=== PATIENT | male | born 1980 | race Caucasian/White ===

== ENCOUNTER 2018-04-03 14:35 | Inpatient (IN) | payer MEDICARE, MEDICAID ==
[~2018-04-03] VITALS: Ht 167.6 cm; Wt 124.0 kg
[2018-04-03] MEDS ORDERED: LORazepam 2 MG TABLET PO PRN (15:30)
[2018-04-03] MEDS ORDERED: HALOPERIDOL 5 MG TABLET PO PRN (15:30)
[2018-04-03] MEDS ORDERED: ZOLPIDEM TARTRATE 10 MG TABLET PO PRN (15:30)
[2018-04-03 16:44] VITALS: BP 143/80
[2018-04-03 18:14] LABS: BASOPHILS % (AUTO) 0.6 % (0.0-2.0); EOSINOPHILS % (AUTO) 1.5 % (1.0-6.0); HEMATOCRIT 42.3 % (41-53); HEMOGLOBIN 14.7 g/dL (13.5-17.5); LYMPHOCYTES # (AUTO) 2.1 K/uL (1.0-4.8); LYMPHOCYTES % (AUTO) 27.6 % (22.0-44.0); MEAN CORPUSCULAR HEMOGLOBIN 30.2 pg (26.0-34.0); MEAN CORPUSCULAR HGB CONC 34.8 G/dL (31.0-37.0); MEAN CORPUSCULAR VOLUME 87 fL (80-100); MONOCYTES # (AUTO) 0.5 K/uL (0.1-1.0); MONOCYTES % (AUTO) 6.9 % (2.0-9.0); NEUTROPHILS # (AUTO) 4.8 K/uL (1.8-7.7); NEUTROPHILS % (AUTO) 63.4 % (40.0-70.0); PLATELET COUNT (AUTO) 210 K/uL (150-450); RED BLOOD CELL COUNT(AUTO) 4.89 MIL/uL (4.50-5.90); RED CELL DISTRIBUTION WIDTH 13.2 % (11.5-14.5)
[2018-04-03 18:28] LABS: ALANINE AMINOTRANSFERASE 56 U/L (12-78); ALBUMIN 3.6 g/dL (3.4-5.0); ALKALINE PHOSPHATASE 102 U/L (46-116); ANION GAP 5 mmol/L (8-16); ASPARTATE AMINOTRANSFERASE 20 U/L (15-37); BILIRUBIN,TOTAL 0.3 mg/dL (0.1-1.0); CALCIUM, TOTAL 8.7 mg/dL (8.8-10.5); CARBON DIOXIDE 30 mmol/L (22-29); CHLORIDE 107 mmol/L (98-107); CREATININE 0.59 mg/dL (0.60-1.30); GLOMERULAR FILTR. RATE CALC > 60 mL/min (>60); GLUCOSE,RANDOM 103 mg/dL (70-110); POTASSIUM 4.3 mmol/L (3.5-5.1); SODIUM SERUM 142 mmol/L (136-145); TOTAL PROTEIN, SERUM 7.7 g/dL (6.4-8.2); UREA NITROGEN, BLOOD 15 mg/dL (7-18)
[2018-04-03 19:53] LABS: AMPHET/METH SCREEN,URINE NEGATIVE (NEGATIVE); BARBITURATE SCREEN, URINE NEGATIVE (NEGATIVE); BENZODIAZEPINES SCREEN,URINE NEGATIVE (NEGATIVE); CANNABINOID SCREEN,URINE NEGATIVE (NEGATIVE); COCAINE SCREEN,URINE NEGATIVE (NEGATIVE); METHADONE SCREEN, URINE NEGATIVE (NEGATIVE); OPIATE SCREEN,URINE NEGATIVE (NEGATIVE); PHENCYCLIDINE SCREEN,URINE NEGATIVE (NEGATIVE)
[2018-04-03 20:01] LABS: APPEARANCE,URINE CLEAR (CLEAR); BILIRUBIN,URINE NEGATIVE (NEGATIVE); GLUCOSE, URINE (UA) NEGATIVE (NEGATIVE); KETONES,URINE NEGATIVE (NEGATIVE); LEUKOCYTE ESTERASE ,URINE NEGATIVE (NEGATIVE); NITRATE,URINE NEGATIVE (NEGATIVE); OCCULT BLOOD,URINE NEGATIVE (NEGATIVE); PH,URINE 5.5 (5.0-8.0); PROTEIN,URINE POS 1+ (NEGATIVE)
[2018-04-03] MEDS ORDERED: CloNIDine HCL 0.1 MG TABLET PO PRN (20:15)
[2018-04-03] MEDS ORDERED: PETROLATUM,WHITE 71 GM JELLY TP PRN (20:15)
[2018-04-03] MEDS ORDERED: ALBUTEROL SULFATE HFA 90 MCG/PUFF 8 GM INHALER IH PRN (20:15)
[2018-04-03] MEDS ORDERED: IBUPROFEN 600 MG TABLET PO PRN (20:15)
[2018-04-03] MEDS ORDERED: MAGNESIUM HYDROXIDE SUSPENSION 30 ML UDCUP PO PRN (20:15)
[2018-04-03] MEDS ORDERED: MAG HYDROX/AL HYDROX/SIMETH ES 30 ML SUSPENSION UDCUP PO PRN (20:15)
[2018-04-03] MEDS ORDERED: LOPERAMIDE HCL 2 MG CAPSULE PO PRN (20:15)
[2018-04-03] MEDS ORDERED: BACITRACIN 28.4 GM OINTMENT TP PRN (20:15)
[2018-04-03] MEDS ORDERED: BENZOCAINE/MENTHOL LOZENGE MM PRN (20:15)
[2018-04-03] MEDS ORDERED: ACETAMINOPHEN 325 MG TABLET PO PRN (20:15)
[2018-04-03] MEDS ORDERED: ONDANSETRON HCL 4 MG TABLET PO PRN (20:15)
[2018-04-03] MEDS: PALIPERIDONE 3 MG ER TABLET PO SCH (21:11)
[2018-04-04 06:16] VITALS: BP 114/91
[2018-04-04] MEDS: DOCUSATE SODIUM 100 MG CAPSULE PO SCH (08:28)
[2018-04-04] MEDS: OMEPRAZOLE 20 MG CAPSULE PO SCH (08:28)
[2018-04-04 08:43] LABS: FREE T4 (FREE THYROXINE) 0.99 ng/dL (0.76-1.46)
[2018-04-04 08:58] VITALS: BP 145/100
[2018-04-04 18:37] VITALS: BP 121/85
[2018-04-04] MEDS: PALIPERIDONE 3 MG ER TABLET PO SCH (20:05)
[2018-04-05] MEDS: OMEGA-3/DHA/EPA/FISH OIL 1,000 MG CAPSULE PO SCH (08:09)
[2018-04-05] MEDS: DOCUSATE SODIUM 100 MG CAPSULE PO SCH (08:09)
[2018-04-05] MEDS: OMEPRAZOLE 20 MG CAPSULE PO SCH (08:09)
[2018-04-05] MEDS: CHOLECALCIFEROL (VIT D3) 1,000 UNITS TABLET PO SCH (08:09)
[2018-04-05 08:58] VITALS: BP 153/83
[2018-04-05 16:58] VITALS: BP 142/77
[2018-04-05] MEDS: PALIPERIDONE 3 MG ER TABLET PO SCH (21:15)
[2018-04-06] MEDS: CHOLECALCIFEROL (VIT D3) 1,000 UNITS TABLET PO SCH (08:18)
[2018-04-06] MEDS: OMEGA-3/DHA/EPA/FISH OIL 1,000 MG CAPSULE PO SCH (08:18)
[2018-04-06] MEDS: DOCUSATE SODIUM 100 MG CAPSULE PO SCH (08:18)
[2018-04-06] MEDS: OMEPRAZOLE 20 MG CAPSULE PO SCH (08:18)
[2018-04-06 09:29] VITALS: BP 147/84
[2018-04-06 17:00] VITALS: BP 140/78
[2018-04-06] MEDS: PALIPERIDONE 3 MG ER TABLET PO SCH (20:30)
[2018-04-07] MEDS: OMEGA-3/DHA/EPA/FISH OIL 1,000 MG CAPSULE PO SCH (07:53)
[2018-04-07] MEDS: DOCUSATE SODIUM 100 MG CAPSULE PO SCH (07:53)
[2018-04-07] MEDS: OMEPRAZOLE 20 MG CAPSULE PO SCH (07:53)
[2018-04-07] MEDS: CHOLECALCIFEROL (VIT D3) 1,000 UNITS TABLET PO SCH (07:53)
[2018-04-07 17:28] VITALS: BP 143/91
[2018-04-07] MEDS: PALIPERIDONE 3 MG ER TABLET PO SCH (20:18)
[2018-04-08] MEDS: CHOLECALCIFEROL (VIT D3) 1,000 UNITS TABLET PO SCH (08:09)
[2018-04-08] MEDS: OMEPRAZOLE 20 MG CAPSULE PO SCH (08:09)
[2018-04-08] MEDS: OMEGA-3/DHA/EPA/FISH OIL 1,000 MG CAPSULE PO SCH (08:10)
[2018-04-08] MEDS: DOCUSATE SODIUM 100 MG CAPSULE PO SCH (08:10)
[2018-04-08 08:51] VITALS: BP 137/91
[2018-04-08] MEDS: PALIPERIDONE 3 MG ER TABLET PO SCH (21:25)
[2018-04-08 21:47] VITALS: BP 137/93
[2018-04-09] MEDS: OMEPRAZOLE 20 MG CAPSULE PO SCH (07:51)
[2018-04-09] MEDS: CHOLECALCIFEROL (VIT D3) 1,000 UNITS TABLET PO SCH (07:51)
[2018-04-09] MEDS: DOCUSATE SODIUM 100 MG CAPSULE PO SCH (07:52)
[2018-04-09] MEDS: OMEGA-3/DHA/EPA/FISH OIL 1,000 MG CAPSULE PO SCH (07:52)
[2018-04-09 08:02] VITALS: BP 143/81
[2018-04-09 19:13] VITALS: BP 136/77
[2018-04-09] MEDS: PALIPERIDONE 3 MG ER TABLET PO SCH (21:07)
[2018-04-10 08:30] VITALS: BP 122/78
[2018-04-10] MEDS: DOCUSATE SODIUM 100 MG CAPSULE PO SCH (09:26)
[2018-04-10] MEDS: OMEPRAZOLE 20 MG CAPSULE PO SCH (09:26)
[2018-04-10] MEDS: CHOLECALCIFEROL (VIT D3) 1,000 UNITS TABLET PO SCH (09:26)
[2018-04-10] MEDS: OMEGA-3/DHA/EPA/FISH OIL 1,000 MG CAPSULE PO SCH (09:26)
[2018-04-10 20:25] VITALS: BP 152/65
[2018-04-10] MEDS: PALIPERIDONE 3 MG ER TABLET PO SCH (21:30)
[2018-04-11] MEDS ORDERED: PALI3 PO (06:53)
[2018-04-11] MEDS: CHOLECALCIFEROL (VIT D3) 1,000 UNITS TABLET PO SCH (08:12)
[2018-04-11] MEDS: OMEPRAZOLE 20 MG CAPSULE PO SCH (08:12)
[2018-04-11] MEDS: DOCUSATE SODIUM 100 MG CAPSULE PO SCH (08:12)
[2018-04-11 08:40] VITALS: BP 145/63
[2018-04-11] MEDS: OMEGA-3/DHA/EPA/FISH OIL 1,000 MG CAPSULE PO SCH (09:46)
[2018-04-11] MEDS ORDERED: DSS100 PO (11:08)
[2018-04-11] MEDS ORDERED: VITAD1000 PO (11:08)
[2018-04-11] MEDS ORDERED: OMEG-135 PO (11:08)
[2018-04-11] MEDS ORDERED: OMEP20 PO (11:09)
== END 2018-04-11 14:17 | disposition home or self-care (01) | DRG 885 ==
LOC: 3EX 15:27
PROVIDERS: ADMIT Psychiatry & Neurology Psychiatry; ATTEND Psychiatry & Neurology Psychiatry
DX: F20.0 Paranoid schizophrenia (principal); Z68.41 Body mass index [BMI] 40.0-44.9, adult; E55.9 Vitamin D deficiency, unspecified; E66.9 Obesity, unspecified; K59.00 Constipation, unspecified; G47.00 Insomnia, unspecified; F41.9 Anxiety disorder, unspecified; E78.1 Pure hyperglyceridemia; Z56.0 Unemployment, unspecified; Z79.899 Other long term (current) drug therapy
CPT/HCPCS: 80307; 82306; 84436; 84439; 84443

== ENCOUNTER 2020-05-03 19:58 | Inpatient (IN) | payer MEDICARE, MEDICAID ==
[~2020-05-03] VITALS: Ht 167.6 cm; Wt 116.6 kg
[~2020-05-03 19:58] MED LIST: CHOL100018 PO; DSS100 PO; OMEG-135 PO; OMEP20 PO; PALI3TAB14 PO
[2020-05-03 21:59] LABS: AMPHET/METH SCREEN,URINE NEGATIVE (NEGATIVE); BARBITURATE SCREEN, URINE NEGATIVE (NEGATIVE); BENZODIAZEPINES SCREEN,URINE NEGATIVE (NEGATIVE); CANNABINOID SCREEN,URINE NEGATIVE (NEGATIVE); COCAINE SCREEN,URINE NEGATIVE (NEGATIVE); METHADONE SCREEN, URINE NEGATIVE (NEGATIVE); OPIATE SCREEN,URINE NEGATIVE (NEGATIVE)
[2020-05-03 22:05] LABS: BASOPHILS % (AUTO) 0.4 % (0.0-2.0); EOSINOPHILS % (AUTO) 2.7 % (1.0-6.0); HEMATOCRIT 47.8 % (41-53); HEMOGLOBIN 16.3 g/dL (13.5-17.5); LYMPHOCYTES # (AUTO) 2.7 K/uL (1.0-4.8); LYMPHOCYTES % (AUTO) 35.2 % (22.0-44.0); MEAN CORPUSCULAR HEMOGLOBIN 32.8 pg (26.0-34.0); MEAN CORPUSCULAR HGB CONC 34.2 G/dL (31.0-37.0); MEAN CORPUSCULAR VOLUME 96 fL (80-100); MONOCYTES # (AUTO) 0.5 K/uL (0.1-1.0); MONOCYTES % (AUTO) 6.4 % (2.0-9.0); NEUTROPHILS # (AUTO) 4.2 K/uL (1.8-7.7); NEUTROPHILS % (AUTO) 55.3 % (40.0-70.0); PLATELET COUNT (AUTO) 192 K/uL (150-450); RED BLOOD CELL COUNT(AUTO) 4.99 MIL/uL (4.50-5.90); RED CELL DISTRIBUTION WIDTH 13.5 % (11.5-14.5)
[2020-05-03 22:07] LABS: PHENCYCLIDINE SCREEN,URINE NEGATIVE (NEGATIVE)
[2020-05-03 22:14] LABS: ANION GAP 13 mmol/L (8-16); CALCIUM, TOTAL 8.5 mg/dL (8.8-10.5); CARBON DIOXIDE 26 mmol/L (22-29); CHLORIDE 102 mmol/L (98-107); GLOMERULAR FILTR. RATE CALC > 60 mL/min (>60); GLUCOSE,RANDOM 153 mg/dL (70-110); POTASSIUM 3.8 mmol/L (3.5-5.1); SODIUM SERUM 141 mmol/L (136-145); UREA NITROGEN, BLOOD 13 mg/dL (7-18)
[2020-05-03 22:16] LABS: ALANINE AMINOTRANSFERASE 137 U/L (12-78); ALBUMIN 3.7 g/dL (3.4-5.0); ALKALINE PHOSPHATASE 120 U/L (46-116); ASPARTATE AMINOTRANSFERASE 82 U/L (15-37); BILIRUBIN,TOTAL 0.3 mg/dL (0.1-1.0); TOTAL PROTEIN, SERUM 8.2 g/dL (6.4-8.2)
[2020-05-03] MEDS ORDERED: HALOPERIDOL 5 MG TABLET PO ONE (22:30)
[2020-05-03] MEDS ORDERED: LORazepam 2 MG TABLET PO ONE (22:30)
[2020-05-03] MEDS ORDERED: HALOPERIDOL 5 MG TABLET PO PRN (22:45)
[2020-05-03] MEDS ORDERED: LORazepam 2 MG TABLET PO PRN (22:45)
[2020-05-04] VITALS (10 sets, daily range): BP systolic 130–149; BP diastolic 58–110
[2020-05-04] MEDS: ZOLPIDEM TARTRATE 10 MG TABLET PO PRN (02:02)
[2020-05-04 06:36] LABS: CHOL/HDL RATIO 3.2 (4.2-7.3)
[2020-05-04] MEDS ORDERED: ONDANSETRON HCL 4 MG TABLET PO PRN (08:15)
[2020-05-04] MEDS ORDERED: BENZOCAINE/MENTHOL LOZENGE MM PRN (08:15)
[2020-05-04] MEDS ORDERED: ACETAMINOPHEN 325 MG TABLET PO PRN (08:15)
[2020-05-04] MEDS ORDERED: OMEPRAZOLE 20 MG CAPSULE PO PRN (08:15)
[2020-05-04] MEDS ORDERED: PETROLATUM,WHITE 28 GM JELLY TP PRN (08:15)
[2020-05-04] MEDS ORDERED: MAG HYDROX/AL HYDROX/SIMETH ES 30 ML SUSPENSION UDCUP PO PRN (08:15)
[2020-05-04] MEDS ORDERED: DOCUSATE SODIUM 100 MG CAPSULE PO PRN (08:15)
[2020-05-04] MEDS ORDERED: IBUPROFEN 600 MG TABLET PO PRN (08:15)
[2020-05-04] MEDS ORDERED: LOPERAMIDE HCL 2 MG CAPSULE PO PRN (08:15)
[2020-05-04] MEDS ORDERED: CloNIDine HCL 0.1 MG TABLET PO PRN (08:15)
[2020-05-04] MEDS ORDERED: BACITRACIN 28.4 GM OINTMENT TP PRN (08:15)
[2020-05-04] MEDS ORDERED: ALBUTEROL SULFATE HFA 90 MCG/PUFF 8 GM INHALER IH PRN (08:15)
[2020-05-04] MEDS ORDERED: MAGNESIUM HYDROXIDE SUSPENSION 30 ML UDCUP PO PRN (08:15)
[2020-05-04] MEDS: METOPROLOL TARTRATE 25 MG TABLET PO SCH ×2 (09:55→16:18)
[2020-05-04] MEDS ORDERED: LORazepam 2 MG TABLET PO PRN (10:45)
[2020-05-04] MEDS: OLANZapine 5 MG TABLET PO SCH ×2 (10:50→16:18)
[2020-05-05] VITALS (7 sets, daily range): BP systolic 117–161; BP diastolic 69–91
[2020-05-05] MEDS ORDERED: LORazepam 2 MG TABLET PO PRN (07:00)
[2020-05-05] MEDS: LORazepam 2 MG TABLET PO SCH ×4 (08:33→21:40)
[2020-05-05] MEDS: METOPROLOL TARTRATE 25 MG TABLET PO SCH ×2 (08:33→17:02)
[2020-05-05] MEDS: OLANZapine 5 MG TABLET PO SCH ×2 (08:33→17:02)
[2020-05-06 05:58] VITALS: BP_SYST 129; BP_SYST 141; BP_DIAS 73; BP_DIAS 83
[2020-05-06 08:00] VITALS: BP 152/91
[2020-05-06] MEDS: LORazepam 2 MG TABLET PO SCH ×4 (08:26→20:26)
[2020-05-06] MEDS: METOPROLOL TARTRATE 25 MG TABLET PO SCH ×2 (08:26→16:26)
[2020-05-06] MEDS: OLANZapine 5 MG TABLET PO SCH ×2 (08:26→16:26)
[2020-05-06 13:05] VITALS: BP 137/79
[2020-05-06 16:18] VITALS: BP 143/98
[2020-05-06 17:21] VITALS: BP 147/98
[2020-05-06] MEDS: ZOLPIDEM TARTRATE 10 MG TABLET PO PRN (22:21)
[2020-05-07 03:16] VITALS: BP 143/86
[2020-05-07] MEDS ORDERED: LORazepam 1 MG TABLET PO PRN (07:00)
[2020-05-07 08:00] VITALS: BP 137/95
[2020-05-07] MEDS: LORazepam 1 MG TABLET PO SCH ×4 (08:52→20:19)
[2020-05-07] MEDS: METOPROLOL TARTRATE 25 MG TABLET PO SCH ×2 (08:52→16:24)
[2020-05-07] MEDS: OLANZapine 5 MG TABLET PO SCH ×2 (08:53→16:25)
[2020-05-07 12:59] VITALS: BP 156/94
[2020-05-07 16:40] VITALS: BP 147/94
[2020-05-07 16:44] VITALS: BP 147/94
[2020-05-08 06:27] VITALS: BP 137/86
[2020-05-08] MEDS ORDERED: LORazepam 1 MG TABLET PO PRN (07:00)
[2020-05-08 08:00] VITALS: BP 120/83
[2020-05-08] MEDS: METOPROLOL TARTRATE 25 MG TABLET PO SCH (08:45)
[2020-05-08] MEDS: OLANZapine 5 MG TABLET PO SCH (08:45)
[2020-05-08] MEDS ORDERED: OLAN5TAB2 PO (13:13)
[2020-05-08] MEDS ORDERED: METO25 PO (13:14)
[2020-05-08 18:35] VITALS: BP 142/84
== END 2020-05-08 17:30 | disposition home or self-care (01) | DRG 885 ==
LOC: EMS 19:58 → 3EX 22:35
PROVIDERS: ADMIT Psychiatry & Neurology Psychiatry; ATTEND Psychiatry & Neurology Psychiatry
DX: F20.9 Schizophrenia, unspecified (principal); R45.851 Suicidal ideations; Z68.41 Body mass index [BMI] 40.0-44.9, adult; I10 Essential (primary) hypertension; E66.01 Morbid (severe) obesity due to excess calories; E78.00 Pure hypercholesterolemia, unspecified; F41.9 Anxiety disorder, unspecified; Z81.8 Family history of other mental and behavioral disorders; K21.9 Gastro-esophageal reflux disease without esophagitis; F10.10 Alcohol abuse, uncomplicated; Y90.9 Presence of alcohol in blood, level not specified; K59.00 Constipation, unspecified; G47.00 Insomnia, unspecified; F17.210 Nicotine dependence, cigarettes, uncomplicated; J44.9 Chronic obstructive pulmonary disease, unspecified
CPT/HCPCS: 80074; 83036; 87081; G0378; G0480

== ENCOUNTER 2020-10-28 18:54 | Emergency (ER) | payer MEDICARE, OTHER ==
[~2020-10-28 18:54] MED LIST changes: -CHOL100018 PO; -DSS100 PO; +METO25 PO; -OMEG-135 PO; -OMEP20 PO; -PALI3TAB14 PO; +RISP3TAB35 PO; +RISPC50 IM
[2020-10-29 01:52] LABS: AMPHET/METH SCREEN,URINE NEGATIVE (NEGATIVE); BARBITURATE SCREEN, URINE NEGATIVE (NEGATIVE); BENZODIAZEPINES SCREEN,URINE NEGATIVE (NEGATIVE); CANNABINOID SCREEN,URINE NEGATIVE (NEGATIVE); COCAINE SCREEN,URINE NEGATIVE (NEGATIVE); METHADONE SCREEN, URINE NEGATIVE (NEGATIVE); OPIATE SCREEN,URINE NEGATIVE (NEGATIVE)
[2020-10-29 01:56] LABS: PHENCYCLIDINE SCREEN,URINE NEGATIVE (NEGATIVE)
== END 2020-10-29 01:53 | disposition left against medical advice (07) ==
LOC: EMS 18:54
DX: Z04.1 Encounter for examination and observation following transport accident (principal); Z53.21 Procedure and treatment not carried out due to patient leaving prior to being seen by health care provider

== ENCOUNTER 2022-09-15 18:17 | Inpatient (IN) | payer MEDICARE, MEDICAID ==
[~2022-09-15] VITALS: Ht 162.6 cm; Wt 119.3 kg
[~2022-09-15 18:17] MED LIST changes: +FLUP5TAB31 PO; +FOLI-130 PO; +OMEG-135 PO; -RISP3TAB35 PO; +THIA100T80 PO
[2022-09-15 19:53] LABS: BASOPHILS % (AUTO) 0.6 % (0.0-2.0); EOSINOPHILS % (AUTO) 3.6 % (1.0-6.0); HEMOGLOBIN 16.6 g/dL (13.5-17.5); LYMPHOCYTES # (AUTO) 1.9 K/uL (1.0-4.8); LYMPHOCYTES % (AUTO) 19.7 % (22.0-44.0); MEAN CORPUSCULAR HEMOGLOBIN 31.4 pg (26.0-34.0); MEAN CORPUSCULAR HGB CONC 33.8 G/dL (31.0-37.0); MEAN CORPUSCULAR VOLUME 93 fL (80-100); MONOCYTES # (AUTO) 0.8 K/uL (0.1-1.0); MONOCYTES % (AUTO) 8.6 % (2.0-9.0); NEUTROPHILS # (AUTO) 6.5 K/uL (1.8-7.7); NEUTROPHILS % (AUTO) 67.5 % (40.0-70.0); PLATELET COUNT (AUTO) 234 K/uL (150-450); RED BLOOD CELL COUNT(AUTO) 5.28 MIL/uL (4.50-5.90)
[2022-09-15 20:07] LABS: ANION GAP 5 mmol/L (8-16); CARBON DIOXIDE 30 mmol/L (22-29); CHLORIDE 101 mmol/L (98-107); CREATININE 1.05 mg/dL (0.60-1.30); GLOMERULAR FILTR. RATE CALC > 60 mL/min (>60); GLUCOSE,RANDOM 152 mg/dL (70-110); POTASSIUM 3.9 mmol/L (3.5-5.1); SODIUM SERUM 136 mmol/L (136-145); UREA NITROGEN, BLOOD 13 mg/dL (7-18)
[2022-09-15 20:11] LABS: ALANINE AMINOTRANSFERASE 50 U/L (12-78); ALBUMIN 3.8 g/dL (3.4-5.0); ALKALINE PHOSPHATASE 112 U/L (46-116); ASPARTATE AMINOTRANSFERASE 22 U/L (15-37); BILIRUBIN,TOTAL 0.5 mg/dL (0.1-1.0); TOTAL PROTEIN, SERUM 8.3 g/dL (6.4-8.2)
[2022-09-15 21:14] LABS: COVID AG,FIA SOURCE NASOPHARYNGEAL
[2022-09-16] MEDS ORDERED: LORazepam 2 MG TABLET PO PRN
[2022-09-16] MEDS ORDERED: HALOPERIDOL 5 MG TABLET PO PRN
[2022-09-16] MEDS ORDERED: ZOLPIDEM TARTRATE 10 MG TABLET PO PRN
[2022-09-16 02:36] VITALS: BP 121/56
[2022-09-16] MEDS ORDERED: INFLUENZA VIRUS VACCINE QVS 2022-23 (6MO+)/PF 60 MCG/0.5 ML SYRINGE IM. ONE (03:45)
[2022-09-16 08:06] VITALS: BP 149/88
[2022-09-16] MEDS ORDERED: ALBUTEROL SULFATE HFA 90 MCG/PUFF 8 GM INHALER IH PRN (19:45)
[2022-09-16] MEDS ORDERED: MAGNESIUM HYDROXIDE SUSPENSION 30 ML UDCUP PO PRN (19:45)
[2022-09-16] MEDS ORDERED: ONDANSETRON HCL 4 MG TABLET PO PRN (19:45)
[2022-09-16] MEDS ORDERED: DOCUSATE SODIUM 100 MG CAPSULE PO PRN (19:45)
[2022-09-16] MEDS ORDERED: GuaiFENesin/D-METHORPHAN [SUGAR-FREE] 200-20MG/10 ML SYRUP UDCUP PO PRN (19:45)
[2022-09-16] MEDS ORDERED: NICOTINE 14 MG/24 HOUR PATCH TD PRN (19:45)
[2022-09-16] MEDS ORDERED: ACETAMINOPHEN 325 MG TABLET PO PRN (19:45)
[2022-09-16] MEDS ORDERED: CloNIDine HCL 0.1 MG TABLET PO PRN (19:45)
[2022-09-16] MEDS ORDERED: LOPERAMIDE HCL 2 MG CAPSULE PO PRN (19:45)
[2022-09-16] MEDS ORDERED: IBUPROFEN 400 MG TABLET PO PRN (19:45)
[2022-09-16] MEDS ORDERED: PETROLATUM,WHITE 28 GM JELLY TP PRN (19:45)
[2022-09-16] MEDS ORDERED: MAG HYDROX/AL HYDROX/SIMETH ES 30 ML SUSPENSION UDCUP PO PRN (19:45)
[2022-09-16 20:30] VITALS: BP 140/84
[2022-09-17] MEDS: METOPROLOL TARTRATE 25 MG TABLET PO SCH (08:10)
[2022-09-17] MEDS: THIAMINE 100 MG TABLET PO SCH (08:10)
[2022-09-17] MEDS: FOLIC ACID 1 MG TABLET PO SCH (08:10)
[2022-09-17 08:11] VITALS: BP 144/92
[2022-09-17] MEDS: OMEGA-3/DHA/EPA/FISH OIL 1,000 MG CAPSULE PO SCH (08:11)
[2022-09-17 22:06] VITALS: BP 146/88
[2022-09-18 07:03] LABS: APPEARANCE,URINE CLEAR (CLEAR); BILIRUBIN,URINE NEGATIVE (NEGATIVE); GLUCOSE, URINE (UA) NEGATIVE (NEGATIVE); KETONES,URINE NEGATIVE (NEGATIVE); LEUKOCYTE ESTERASE ,URINE NEGATIVE (NEGATIVE); NITRATE,URINE NEGATIVE (NEGATIVE); OCCULT BLOOD,URINE NEGATIVE (NEGATIVE); PROTEIN,URINE NEGATIVE (NEGATIVE); SPECIFIC GRAVITIY, URINE 1.019 (1.003-1.030); UROBILINOGEN,URINE <=1.0 mg/dL (<=1.0)
[2022-09-18 07:09] LABS: AMPHET/METH SCREEN,URINE POSITIVE (NEGATIVE); BARBITURATE SCREEN, URINE NEGATIVE (NEGATIVE); BENZODIAZEPINES SCREEN,URINE NEGATIVE (NEGATIVE); CANNABINOID SCREEN,URINE NEGATIVE (NEGATIVE); COCAINE SCREEN,URINE NEGATIVE (NEGATIVE); METHADONE SCREEN, URINE NEGATIVE (NEGATIVE); OPIATE SCREEN,URINE NEGATIVE (NEGATIVE)
[2022-09-18 07:12] LABS: PHENCYCLIDINE SCREEN,URINE NEGATIVE (NEGATIVE)
[2022-09-18] MEDS: METOPROLOL TARTRATE 25 MG TABLET PO SCH (08:11)
[2022-09-18] MEDS: THIAMINE 100 MG TABLET PO SCH (08:11)
[2022-09-18] MEDS: OMEGA-3/DHA/EPA/FISH OIL 1,000 MG CAPSULE PO SCH (08:11)
[2022-09-18] MEDS: FOLIC ACID 1 MG TABLET PO SCH (08:11)
[2022-09-18 09:26] VITALS: BP 151/91
[2022-09-18 22:14] VITALS: BP 138/67
[2022-09-19] MEDS: THIAMINE 100 MG TABLET PO SCH (08:08)
[2022-09-19] MEDS: FOLIC ACID 1 MG TABLET PO SCH (08:08)
[2022-09-19] MEDS: METOPROLOL TARTRATE 25 MG TABLET PO SCH (08:08)
[2022-09-19] MEDS: OMEGA-3/DHA/EPA/FISH OIL 1,000 MG CAPSULE PO SCH (08:09)
[2022-09-19 08:35] VITALS: BP 142/89
[2022-09-19] MEDS ORDERED: RisperiDONE MICROSPHERES 50 MG/2 ML SYRINGE IM ONE (16:00)
[2022-09-19 20:47] VITALS: BP 159/72
[2022-09-20 08:00] VITALS: BP 135/95
[2022-09-20] MEDS: OMEGA-3/DHA/EPA/FISH OIL 1,000 MG CAPSULE PO SCH (08:52)
[2022-09-20] MEDS: METOPROLOL TARTRATE 25 MG TABLET PO SCH (08:52)
[2022-09-20] MEDS: FOLIC ACID 1 MG TABLET PO SCH (08:52)
[2022-09-20] MEDS: THIAMINE 100 MG TABLET PO SCH (08:52)
[2022-09-20 20:00] VITALS: BP 146/88
[2022-09-21 08:24] VITALS: BP 135/90
[2022-09-21] MEDS: OMEGA-3/DHA/EPA/FISH OIL 1,000 MG CAPSULE PO SCH (09:58)
[2022-09-21] MEDS: FOLIC ACID 1 MG TABLET PO SCH (09:58)
[2022-09-21] MEDS: THIAMINE 100 MG TABLET PO SCH (09:58)
[2022-09-21] MEDS: METOPROLOL TARTRATE 25 MG TABLET PO SCH (09:59)
[2022-09-21 13:57] LABS: GLUCOMETER DEV NAME(LOC) POC.BV
[2022-09-21 20:35] VITALS: BP 135/90
[2022-09-22] MEDS: METOPROLOL TARTRATE 25 MG TABLET PO SCH (09:10)
[2022-09-22] MEDS: THIAMINE 100 MG TABLET PO SCH (09:11)
[2022-09-22] MEDS: OMEGA-3/DHA/EPA/FISH OIL 1,000 MG CAPSULE PO SCH (09:11)
[2022-09-22] MEDS: FOLIC ACID 1 MG TABLET PO SCH (09:11)
[2022-09-22 09:43] VITALS: BP 162/71
[2022-09-22 19:36] LABS: GLUCOMETER DEV NAME(LOC) POC.BV
[2022-09-22 20:52] VITALS: BP 152/93
[2022-09-23 08:37] VITALS: BP 155/93
[2022-09-23] MEDS: OMEGA-3/DHA/EPA/FISH OIL 1,000 MG CAPSULE PO SCH (08:50)
[2022-09-23] MEDS: FOLIC ACID 1 MG TABLET PO SCH (08:50)
[2022-09-23] MEDS: THIAMINE 100 MG TABLET PO SCH (08:50)
[2022-09-23] MEDS: METOPROLOL TARTRATE 25 MG TABLET PO SCH (08:50)
[2022-10-07] MEDS ORDERED: RisperiDONE MICROSPHERES 50 MG/2 ML SYRINGE IM SCH (09:00)
== END 2022-09-23 16:04 | disposition home or self-care (01) | DRG 885 ==
LOC: EMS 18:28 → B2X 09-16 00:21 → B2S 09-22 21:36
PROVIDERS: ADMIT Psychiatry & Neurology Psychiatry; ATTEND Psychiatry & Neurology Psychiatry
DX: F25.9 Schizoaffective disorder, unspecified (principal); E78.5 Hyperlipidemia, unspecified; Z20.822 Contact with and (suspected) exposure to COVID-19; I10 Essential (primary) hypertension; R73.9 Hyperglycemia, unspecified; F17.210 Nicotine dependence, cigarettes, uncomplicated; Z86.73 Personal history of transient ischemic attack (TIA), and cerebral infarction without residual deficits; Z28.21 Immunization not carried out because of patient refusal; Z79.899 Other long term (current) drug therapy
CPT/HCPCS: 80053; 80307; 81003; 85025; 99285; G0480; J2794

== ENCOUNTER 2024-02-08 16:15 | Emergency (ER) | payer MEDICARE, OTHER ==
[~2024-02-08] VITALS: Ht 167.6 cm; Wt 120.0 kg
[~2024-02-08 16:15] MED LIST changes: -FLUP5TAB31 PO; -FOLI-130 PO; -METO25 PO; -OMEG-135 PO; -THIA100T80 PO
[2024-02-08] MEDS ORDERED: QUET200T30 PO (16:24)
[2024-02-08] MEDS ORDERED: RISP125S SQ (16:24)
[2024-02-08] MEDS ORDERED: TRAZ-257 PO (16:24)
[2024-02-08] MEDS ORDERED: FLUP10TA8 PO (16:24)
[2024-02-08] MEDS ORDERED: RISP3TAB35 PO (16:24)
[2024-02-08] MEDS ORDERED: BENZ2TAB71 PO (16:24)
[2024-02-08 17:08] VITALS: TEMP 98.5
[2024-02-08] MEDS ORDERED: ACET-66 PO (18:36)
[2024-02-08] MEDS ORDERED: CEPH-558 PO (18:36)
[2024-02-08] MEDS ORDERED: AMLO-257 PO (18:36)
[2024-02-08 18:46] VITALS: BP 162/93; PULSE 97; RESP 16
== END 2024-02-08 19:25 | disposition home or self-care (01) ==
LOC: EMS 16:27
DX: H66.91 Otitis media, unspecified, right ear (principal); K04.7 Periapical abscess without sinus; I10 Essential (primary) hypertension; F20.9 Schizophrenia, unspecified; F17.210 Nicotine dependence, cigarettes, uncomplicated; F10.90 Alcohol use, unspecified, uncomplicated; Y90.9 Presence of alcohol in blood, level not specified
CPT/HCPCS: 99283; Z7502